=== PATIENT | female | born 1960 | race Caucasian/White ===

== ENCOUNTER → 2017-05-08 | Outpatient (CLI) | payer BC ==
[~2017-05-08] MED LIST: ZOCOR20 MG PO
== END ==
LOC: MC.RAD 14:00
DX: Z12.31 Encounter for screening mammogram for malignant neoplasm of breast (principal)

== ENCOUNTER → 2019-04-19 | Outpatient (CLI) | payer BC | LOC: MC.RAD 15:22 | DX: Z12.31 Encounter for screening mammogram for malignant neoplasm of breast (principal) ==

== ENCOUNTER → 2022-06-19 | Outpatient (CLI) | payer OTHER | LOC: MC.RAD 15:39 | DX: Z12.31 Encounter for screening mammogram for malignant neoplasm of breast (principal); N60.12 Diffuse cystic mastopathy of left breast ==

== ENCOUNTER → 2022-06-26 | Outpatient (CLI) | payer OTHER | LOC: MC.RAD 07:00 | DX: N63.23 Unspecified lump in the left breast, lower outer quadrant (principal); N60.12 Diffuse cystic mastopathy of left breast ==

== ENCOUNTER → 2024-06-06 | Outpatient (CLI) | payer OTHER | LOC: MC.RAD 07:11 | DX: Z12.31 Encounter for screening mammogram for malignant neoplasm of breast (principal) ==